=== PATIENT | male | born 1960 | race Caucasian/White ===

== ENCOUNTER → 2018-10-15 | Day surgery (SDC) | payer BC ==
[~2018-10-15] MED LIST: CIPROFLOXACIN HCL 0.0015 GM, PHENYLEPHRINE HCL 0.05 GM, KETOROLAC TROMETHAMINE 0.000625 GM MC ONE; EPINEPHRINE 1 MG/ML AMPUL SQ ONE; LIDOCAINE 2% MDV (20MG/ML) 20ML VIAL IV ONE; NEOMYCIN/POLY./DEXAM OPTH OINT OPTH ONE; PROPOFOL 10 MG/ML VIAL IV ONE; TETRACAINE HCL 0.5% 15 ML OPTH BTL OPTH ONE
--- NOTE | 2018-10-15 16:36 | Operative Note ---
DATE OF PROCEDURE: 10/15/18. PREOPERATIVE DIAGNOSIS: Nuclear sclerotic cataract, right eye. POSTOPERATIVE DIAGNOSIS: Nuclear sclerotic cataract, right eye. OPERATION: Phacoemulsification of cataractous lens with implantation of intraocular lens. LENS IMPLANT USED: [employer] Model PCB00 + 22.0 diopters. COMPLICATIONS: None. PROCEDURE IN DETAIL: Following a retrobulbar and facial block, the patient was prepped and draped in the usual fashion for eye surgery. A lid speculum was placed in the right eye after which a 2.4 mm tunnel wound was placed at the temporal limbus and dissected into clear cornea. A paracentesis was placed at 2 o'clock hours to the left and right of the initial incision and the chamber deepened with Viscoelastic. The keratome was then used to enter the anterior chamber after which the continuous circular capsulorrhexis was accomplished without difficulty using a bent needle and a Utrata forceps. Hydrodissection and hydrodelineation of the lens was performed after which the nucleus of the lens was removed using the Phaco handpiece in the [id number]-[id number] technique. The residual cortical material was irrigated and aspirated from the eye after which the bag and chamber were re-examined. The bag was re-inflated with Viscoelastic and the intraocular lens injected into the capsular bag where it centered well. The Viscoelastic was then copiously irrigated and aspirated from the eye after which the temporal tunnel wound and paracentesis were hydrated and the wounds were examined. They were noted to be watertight. The lid speculum was removed from the eye and the eye patched and shielded. The patient was transferred to the recovery room in satisfactory condition and given an appointment to be reexamined in the clinic later today or as directed by Dr. Romero. JOB NUMBER: [id number] [facility]
== END | disposition home or self-care (01) ==
LOC: SUR 09:01
PROVIDERS: ATTEND Ophthalmology
DX: H25.11 Age-related nuclear cataract, right eye (principal); I10 Essential (primary) hypertension; F17.210 Nicotine dependence, cigarettes, uncomplicated
CPT/HCPCS: J0171